=== PATIENT | female | born 1950 | race African-American/Black ===

== ENCOUNTER → 2025-02-12 | Day surgery (SDC) | payer MEDICARE ==
[2025-02-06 10:59] LABS: BASOPHILS % 0.2 % (0.0-1.0); EOSINOPHILS % 1.4 % (0.0-6.0); LYMPHOCYTES % 21.7 % (18.0-39.1); MONOCYTES % 9.0 % (4.4-11.3); NEUTROPHILS % 67.5 % (38.7-80.0); RED CELL DISTRIBUTION WIDTH 15.9 % (11.7-14.4)
[2025-02-06 11:23] LABS: EST GLOMERULAR FILTRATION RATE 62.0 ML/MIN (>=60)
[~2025-02-12] MED LIST: ACETAMINOPHEN 1000 MG/100 ML 100 ML IV ONE; ALBUTEROL 90 MCG/ACT INHALER INH ONE; BREZTRI AEROS10.7 GM INH; BUPIVACAINE LIPOSOME/PF 266 MG/20 ML IJ ONE; CARVEDILOL3.125 MG PO; CILOSTAZOL50 MG PO; CLOPIDOGREL75 MG PO; CRESTOR40 MG PO; DEXAMETHASONE SOD PHOS INJ 4 MG/ML SDV ONE; EPHEDRINE SULFATE INJ 50 MG/ML VIAL ONE; FAMOTIDINE 20 MG/2 ML VIAL IV ONE; FENTANYL CITRATE/PF 100MCG/2 ML INJ ONE; IRON OTC PO; ISOSORBIDE MONO30 MG PO; LIDOCAINE HCL 2% LOCAL INJ 5 ML SDV VIAL INJ ONE; LOSARTAN-HCTZ1 EACH PO; METHYLFOLATE1 EACH PO; MIDAZOLAM HCL 2 MG/2 ML VIAL ONE; MIRALAX17 GM PO; NALOXONE HCL INJ 0.4 MG/ML AMP ONE; ONDANSETRON HCL INJ 2MG/ML 2ML 2 MG/ML VIAL ONE; PANTOPRAZOLE SO40 MG PO; PHENYLEPHRINE HCL 1% 10 MG/ML VIAL ONE; PROPOFOL IV EMULSION 10 MG/ML 20 ML VIAL ONE; RED YEAST RICE600 MG PO; ROCURONIUM BROMIDE 1 ML IV ONE; SPIRONOLACTONE25 MG PO; SUGAMMADEX SODIUM 200 MG/2 ML VIAL IV ONE; TRAZODONE HCL50 MG PO
[2025-02-12] MEDS: LACTATED RINGER'S 1,000 ML ONE (06:30)
[2025-02-12] MEDS: CLINDAMYCIN PHOS 900MG/ 50ML 50 ML IV ONE (06:30)
[2025-02-12 09:30] VITALS: BP 134/77; PULSE 71; RESP 16; O2SAT 96
== END | disposition home or self-care (01) ==
LOC: OR 05:24
PROVIDERS: ATTEND Orthopaedic Surgery
DX: M75.122 Complete rotator cuff tear or rupture of left shoulder, not specified as traumatic (principal); M75.42 Impingement syndrome of left shoulder; M75.02 Adhesive capsulitis of left shoulder; E11.9 Type 2 diabetes mellitus without complications; I10 Essential (primary) hypertension; Z71.89 Other specified counseling; E78.5 Hyperlipidemia, unspecified; J44.9 Chronic obstructive pulmonary disease, unspecified; E66.01 Morbid (severe) obesity due to excess calories; I71.40 Abdominal aortic aneurysm, without rupture, unspecified; F41.9 Anxiety disorder, unspecified; F32.A Depression, unspecified; K21.9 Gastro-esophageal reflux disease without esophagitis; M06.9 Rheumatoid arthritis, unspecified; F17.210 Nicotine dependence, cigarettes, uncomplicated; Z71.6 Tobacco abuse counseling; Z88.0 Allergy status to penicillin; Z88.8 Allergy status to other drugs, medicaments and biological substances; Z01.810 Encounter for preprocedural cardiovascular examination; Z01.812 Encounter for preprocedural laboratory examination; Z01.818 Encounter for other preprocedural examination; Z79.02 Long term (current) use of antithrombotics/antiplatelets; Z79.4 Long term (current) use of insulin; Z79.899 Other long term (current) drug therapy; Z82.61 Family history of arthritis
CPT/HCPCS: 29826; 29827; 36415 ×2; 71046; 80048; 82948; 85025; 93005; C1713; J0131; J0666; J1100; J1308; J2003; J2250; J2371; J2405; J2704; J3010; J7121; J2312